=== PATIENT | male | born 1940 | race Caucasian/White ===

== ENCOUNTER → 2018-10-21 11:14 | Outpatient (CLI) | payer OTHER, SELFPAY ==
--- NOTE | 2018-10-21 | DI.CT.S_ITS ---
PROCEDURE: CT ABDOMEN PELVIS W CON INDICATIONS: Unspecified abdominal pain TECHNIQUE: After the administration of oral and intravenous contrast, 5 mm thick sections acquired from the diaphragms to the symphysis. 5 mm thick coronal and sagittal reformats were performed. For radiation dose reduction, the following was used: automated exposure control, adjustment of mA and/or kV according to patient size. COMPARISON: CT KUB 02/23/2010. FINDINGS: Image quality: Excellent. ABDOMEN: Lung bases: Lung bases are clear. Heart size is normal. Solid organs: Liver is normal in size and enhancement. Gallbladder is unremarkable. Biliary system is non-dilated. Pancreas enhances normally. Spleen is normal in size and enhancement. No adrenal nodules. Kidneys are normal in size and enhancement, without hydronephrosis. Punctate nonobstructing kidney stone in the superior pole of the right kidney, (4/44). Overall stone burden is decreased compared to 2010. Peritoneum and bowel: Stomach, small bowel, and colon loops are normal in caliber and wall thickness. A few colonic diverticuli. No free fluid or air. Nodes and vessels: No retroperitoneal or mesenteric adenopathy. Aorta and inferior vena cava are normal in caliber. Moderate atherosclerotic plaque. Miscellaneous: No ventral hernias. PELVIS: Genitourinary: Small left bladder diverticulum. No bladder calculus. Urinary bladder wall thickness appears normal. Mild prostatomegaly. A trace right hydrocele partially visualized. Miscellaneous: No inguinal hernias or adenopathy. Bones: No suspicious bony lesions. Moderate DDD. No vertebral body compression fractures. IMPRESSION: 1. No acute inflammatory process identified. 2. No hydronephrosis. Small right kidney nonobstructing kidney stone. 3. Bladder diverticulum and prostatomegaly. Dictated by: Johnnie Samano M.D. on 10/21/2018 at 14:15 Approved by: Johnnie Samano M.D. on 10/21/2018 at 14:23
[2018-10-21 12:52] LABS: Add Manual Diff / Slide Review NO; Basophils Absolute Auto 0 /uL (0-100); Basophils Percent Auto 0.5 % (0-2); Eosinophils Absolute Auto 100 /uL (0-450); Eosinophils Percent Auto 1.1 % (2-4); Hematocrit 41.2 % (41-53); Hemoglobin 14.2 g/dL (13.5-17.5); Lymphocytes Absolute Auto 1200 /uL (1100-4500); Lymphocytes Percent Auto 26.2 % (25-40); Mean Corpuscular HGB Conc 34.5 % (30-36); Mean Corpuscular Hemoglobin 31.3 PG (26-34); Mean Corpuscular Volume 90.9 fL (80-100); Monocytes Absolute Auto 600 /uL (0-900); Monocytes Percent Auto 13.6 % (3-14); Neutrophils Absolute Auto 2700 /uL (1500-7000); Neutrophils Percent Auto 58.6 % (50-75); Platelet Count 148 X10^3/uL (150-400); Red Blood Cell Count 4.53 X10^6/uL (4.5-5.9); Red Cell Distribution Width 13.7 % (11.6-14.8); White Blood Cell Count 4.6 X10^3/uL (4.5-11.0)
[2018-10-21 13:13] LABS: Alanine Aminotransferase 38 IU/L (21-72); Albumin 4.3 g/dL (3.5-5.0); Albumin Globulin Ratio 1.3 (1.0-2.8); Alkaline Phosphatase 59 U/L (38-126); Aspartate Aminotransferase 29 IU/L (17-59); BUN Creatinine Ratio 15.7 (6-22); Bilirubin Total 2.3 mg/dL (0.2-1.3); Blood Urea Nitrogen 11 mg/dL (9-20); Calcium 9.2 mg/dL (8.4-10.2); Carbon Dioxide 27 mmol/L (22-32); Chloride 100 mmol/L (98-107); Cholesterol 120 mg/dL (140-199); Estimated Glomerular Filt Rate > 60.0 mL/min (>60); Globulin 3.3 g/dL (1.7-4.1); Glucose 96 mg/dL (80-110); HDL Cholesterol 38 mg/dL (40-60); HEMOLYSIS < 15 (0-50); LDL Cholesterol Calculated 65 mg/dL (<100); Potassium 3.4 mmol/L (3.4-5.1); Sodium 139 mmol/L (137-145); Total Protein 7.6 g/dL (6.3-8.2); Triglycerides 85 mg/dL (35-150)
[2018-10-21 13:40] LABS: Prostate Specific Antigen 0.259 ng/mL (0.10-4.00)
== END ==
PROVIDERS: PCP Internal Medicine; Visit Provider Internal Medicine
DX: N40.0 Benign prostatic hyperplasia without lower urinary tract symptoms (principal); E78.2 Mixed hyperlipidemia
CPT/HCPCS: 74177; 80053; 80061; 84153; 85025; Q9967

== ENCOUNTER → 2019-01-11 09:41 | Outpatient (CLI) | payer OTHER, SELFPAY ==
--- NOTE | 2019-01-11 | DI.RAD.S_ITS ---
PROCEDURE: XR SHOULDER LT MIN 2V INDICATIONS: PAIN IN UNSPECIFIED SHOULDER TECHNIQUE: 3 views of the left shoulder were acquired. COMPARISON: None. FINDINGS: Bones: No fractures or dislocations. No suspicious bony lesions. Visualized ribs appear intact. Soft tissues: No suspicious soft tissue calcifications. IMPRESSION: Mild a.c. joint osteoarthritis, no trauma found. Dictated by: Bryan Sharma M.D. on 01/11/2019 at 10:50 Approved by: Bryan Sharma M.D. on 01/11/2019 at 10:50
== END ==
PROVIDERS: PCP Internal Medicine; Visit Provider Internal Medicine
DX: M25.512 Pain in left shoulder (principal); M19.012 Primary osteoarthritis, left shoulder
CPT/HCPCS: 73030

== ENCOUNTER → 2019-10-28 19:17 | Outpatient (ROUT) | payer MEDICARE, SELFPAY ==
[2019-10-28 19:51] LABS: Aspartate Aminotransferase 33 IU/L (17-59); BUN Creatinine Ratio 13.4 (6-22); Blood Urea Nitrogen 9 mg/dL (9-20); Calcium 9.5 mg/dL (8.4-10.2); Carbon Dioxide 30 mmol/L (22-32); Chloride 102 mmol/L (98-107); Cholesterol 105 mg/dL (140-199); Estimated Glomerular Filt Rate > 60.0 mL/min (>60); Glucose 108 mg/dL (80-110); HDL Cholesterol 40 mg/dL (40-60); HEMOLYSIS < 15 (0-50); LDL Cholesterol Calculated 48 mg/dL (<100); Potassium 3.4 mmol/L (3.4-5.1); Sodium 138 mmol/L (137-145); Triglycerides 84 mg/dL (35-150)
[2019-10-28 20:17] LABS: Prostate Specific Antigen 0.213 ng/mL (0.10-4.00)
== END ==
PROVIDERS: PCP Internal Medicine; Visit Provider Internal Medicine
DX: E78.2 Mixed hyperlipidemia (principal); I10 Essential (primary) hypertension; R73.01 Impaired fasting glucose
CPT/HCPCS: 80048; 80061; 83036; 84153; 84450

== ENCOUNTER → 2019-11-11 08:09 | Outpatient (CLI) | payer MEDICARE, SELFPAY ==
--- NOTE | 2019-11-11 | DI.RAD.S_ITS ---
PROCEDURE: XR KNEE RT 1TO2V INDICATIONS: acute pain of rt knee TECHNIQUE: 2 views of the knee were acquired. COMPARISON: None. FINDINGS: Bones: No fractures or dislocations. No suspicious bony lesions. Soft tissues: No joint effusion. No suspicious soft tissue calcifications. IMPRESSION: Mild narrowing of the medial compartment joint interspace indicating presence of osteoarthritis in this area. No effusion or loose body found. Dictated by: Bryan Sharma M.D. on 11/11/2019 at 9:42 Approved by: Bryan Sharma M.D. on 11/11/2019 at 9:42
== END ==
PROVIDERS: PCP Internal Medicine; Referring Provider Internal Medicine; Visit Provider Student in an Organized Health Care Education/Training Program
DX: M25.561 Pain in right knee (principal); M17.11 Unilateral primary osteoarthritis, right knee
CPT/HCPCS: 73560

== ENCOUNTER → 2019-11-18 17:22 | Outpatient (CLI) | payer MEDICARE, SELFPAY ==
--- NOTE | 2019-11-18 17:23 | DI.MRI.S_ITS ---
PROCEDURE: MR KNEE RT WO CON INDICATIONS: RIGHT KNEE PAIN TECHNIQUE: Noncontrast sagittal PD fast spin echo and T2 fast spin echo with fat saturation, sagittal 3-D FLASH with fat saturation; coronal T1 spin echo and PD fast spin echo with fat saturation, and axial PD fast spin echo with fat saturation through the knee. COMPARISON: None. FINDINGS: Image quality: Excellent. Menisci: Medial meniscus tear involving the body and posterior horn, with abnormal signal extending to the undersurface.. Lateral meniscus intact. Cruciate ligaments: Anterior cruciate ligament appears intact. Posterior cruciate ligament appears intact. Medial structures: The medial collateral ligament appears intact. Semimembranosus tendon appears intact. Visualized portions of the pes anserinus tendons appear normal. No abnormal bursal fluid. Lateral structures: The lateral collateral ligament intact. Biceps femoris tendon appears intact. Popliteus tendon grossly unremarkable. Iliotibial band appears intact. Anterior structures: Quadriceps tendon intact. Medial and lateral patellofemoral ligaments intact. Patellar tendon appears intact. There is extensive prepatellar and superficial infrapatellar subcutaneous edema and fluid suggestive of severe bursitis. Hoffa's fat pad unremarkable. Bones and cartilage: No focal marrow contusion or discrete low signal fracture line. Within the medial compartment, diffuse partial-thickness loss of the femoral and tibial articular cartilage. Within the lateral compartment, no focal cartilage defect. Within the patellofemoral compartment, mild diffuse surface fraying of the patellar and femoral trochlear cartilage with near full thickness loss of the cartilage overlying the medial patellar facet. Underlying subchondral cystic change and marrow edema. Joint space: No joint effusion. Trace Proctor's cyst. No specific evidence of intra-articular loose body. IMPRESSION: Severe prepatellar and superficial infrapatellar fluid and edema suggestive of bursitis. Please correlate clinically. There is also circumferential subcutaneous edema elsewhere. Medial meniscal tear involving the body and posterior horn. Trace Proctor's cyst Dictated by: Silas Martínez M.D. on 11/21/2019 at 10:50 Approved by: Silas Martínez M.D. on 11/21/2019 at 10:57
== END ==
PROVIDERS: PCP Internal Medicine; Referring Provider Internal Medicine; Visit Provider Internal Medicine
DX: M25.561 Pain in right knee (principal); S83.241A Other tear of medial meniscus, current injury, right knee, initial encounter
CPT/HCPCS: 73721

== ENCOUNTER → 2019-12-28 18:35 | Outpatient (ROUT) | payer MEDICARE, SELFPAY ==
[2019-12-28 19:32] LABS: C-Reactive Protein Quant < 0.5 mg/dL (<1.0)
[2019-12-28 19:36] LABS: Add Manual Diff / Slide Review NO; Basophils Absolute Auto 0 /uL (0-100); Basophils Percent Auto 0.7 % (0-2); Eosinophils Absolute Auto 100 /uL (0-450); Eosinophils Percent Auto 2.7 % (2-4); Hematocrit 42.7 % (41-53); Hemoglobin 14.2 g/dL (13.5-17.5); Lymphocytes Absolute Auto 1200 /uL (1100-4500); Lymphocytes Percent Auto 26.8 % (25-40); Mean Corpuscular HGB Conc 33.3 % (30-36); Mean Corpuscular Hemoglobin 30.8 PG (26-34); Mean Corpuscular Volume 92.6 fL (80-100); Monocytes Absolute Auto 500 /uL (0-900); Monocytes Percent Auto 11.6 % (3-14); Neutrophils Absolute Auto 2700 /uL (1500-7000); Neutrophils Percent Auto 58.2 % (50-75); Platelet Count 165 X10^3/uL (150-400); Red Blood Cell Count 4.61 X10^6/uL (4.5-5.9)
[2019-12-28 20:16] LABS: White Blood Cell Count 4.6 X10^3/uL (4.5-11.0)
[2019-12-28 20:25] LABS: Erythrocyte Sedimentation Rate 2 MM/HR (0-15)
== END ==
PROVIDERS: PCP Internal Medicine; Visit Provider Internal Medicine
DX: R51.9 Headache, unspecified (principal)
CPT/HCPCS: 85025; 85651; 86140

== ENCOUNTER → 2020-02-07 10:19 | Outpatient (CLI) | payer MEDICARE, SELFPAY ==
--- NOTE | 2020-02-07 | DI.RAD.S_ITS ---
PROCEDURE: XR CERVICAL SPINE 2V OR 3V INDICATIONS: NECK PAIN TECHNIQUE: 3 view(s) of the cervical spine were acquired. COMPARISON: [facility], CERVICAL SPINE 2 OR 3 VIEWS, 03/04/2017, 12:40. FINDINGS: Bones: No fracture. Multilevel degenerative endplate sclerosis and spurring. Diffuse facet arthropathy. Moderate to severe narrowing of the C5-C6 and C6-C7 disc spaces. Soft tissues: No prevertebral soft tissue swelling. IMPRESSION: Lower cervical spondylosis and diffuse facet arthropathy. Overall, no definite interval change since 03/04/17. Dictated by: Silas Martínez M.D. on 02/07/2020 at 11:55 Approved by: Silas Martínez M.D. on 02/07/2020 at 11:56
[2020-02-07 12:13] LABS: Add Manual Diff / Slide Review NO; Basophils Absolute Auto 0 /uL (0-100); Basophils Percent Auto 0.3 % (0-2); Eosinophils Absolute Auto 100 /uL (0-450); Eosinophils Percent Auto 0.9 % (2-4); Hematocrit 41.3 % (41-53); Hemoglobin 14.4 g/dL (13.5-17.5); Lymphocytes Absolute Auto 1000 /uL (1100-4500); Lymphocytes Percent Auto 16.7 % (25-40); Mean Corpuscular Hemoglobin 31.9 PG (26-34); Mean Corpuscular Volume 91.1 fL (80-100); Monocytes Absolute Auto 900 /uL (0-900); Monocytes Percent Auto 14.6 % (3-14); Neutrophils Absolute Auto 4200 /uL (1500-7000); Neutrophils Percent Auto 67.5 % (50-75); Platelet Count 163 X10^3/uL (150-400); Red Blood Cell Count 4.53 X10^6/uL (4.5-5.9); Red Cell Distribution Width 13.7 % (11.6-14.8); White Blood Cell Count 6.3 X10^3/uL (4.5-11.0)
[2020-02-07 12:28] LABS: Erythrocyte Sedimentation Rate 11 MM/HR (0-15)
[2020-02-07 12:33] LABS: C-Reactive Protein Quant 1.3 mg/dL (<1.0)
== END ==
PROVIDERS: PCP Internal Medicine; Referring Provider Internal Medicine; Visit Provider Internal Medicine
DX: M54.2 Cervicalgia (principal); M47.812 Spondylosis without myelopathy or radiculopathy, cervical region; M48.02 Spinal stenosis, cervical region
CPT/HCPCS: 36415; 72040; 85025; 85651; 86140

== ENCOUNTER → 2020-04-24 20:19 | Outpatient (ROUT) | payer OTHER, SELFPAY ==
[2020-04-24 20:43] LABS: Aspartate Aminotransferase 28 IU/L (17-59); BUN Creatinine Ratio 18.5 (6-22); Blood Urea Nitrogen 12 mg/dL (9-20); Calcium 9.6 mg/dL (8.4-10.2); Carbon Dioxide 28 mmol/L (22-32); Chloride 100 mmol/L (98-107); Cholesterol 119 mg/dL (140-199); Estimated Glomerular Filt Rate > 60.0 mL/min (>60); Glucose 95 mg/dL (80-110); HDL Cholesterol 43 mg/dL (40-60); HEMOLYSIS < 15 (0-50); LDL Cholesterol Calculated 60 mg/dL (<100); Potassium 3.9 mmol/L (3.4-5.1); Sodium 136 mmol/L (137-145); Triglycerides 82 mg/dL (35-150)
== END ==
PROVIDERS: PCP Internal Medicine; Visit Provider Internal Medicine
DX: I10 Essential (primary) hypertension (principal); E78.2 Mixed hyperlipidemia
CPT/HCPCS: 80048; 80061; 84450

== ENCOUNTER → 2020-10-12 11:02 | Outpatient (CLI) | payer OTHER, SELFPAY ==
--- NOTE | 2020-10-12 | DI.RAD.S_ITS ---
PROCEDURE: XR WRIST RT MIN 3V INDICATIONS: RIGHT WRIST PAIN TECHNIQUE: 4 views of the wrist were acquired. COMPARISON: None. FINDINGS: Bones: No fractures or dislocations. No suspicious bony lesions. Mild radiocarpal, ulnar carpal, triscaphe and 1st CMC joint space narrowing. Scaphoid view: Intact scaphoid. Soft tissues: No suspicious soft tissue calcifications. IMPRESSION: Minimal joint degeneration. Dictated by: Trung Bartholomew RR Interpreted: Bryan Sharma MD on 10/12/2020 at 11:39 Transcribed by: SURESH on 10/12/2020 at 11:40 Approved by: Bryan Sharma M.D. on 10/12/2020 at 15:10
== END ==
PROVIDERS: PCP Internal Medicine; Referring Provider Internal Medicine; Visit Provider Internal Medicine
DX: M25.531 Pain in right wrist (principal)
CPT/HCPCS: 73110

== ENCOUNTER → 2020-11-21 10:02 | Outpatient (CLI) | payer OTHER, SELFPAY ==
--- NOTE | 2020-11-21 | DI.RAD.S_ITS ---
PROCEDURE: XR DEXA AXIAL SKELETON INDICATIONS: OSTEOPENIA COMPARISON: None. FINDINGS: This blank DEXA report has been sent in error by the PACS system. The correct and complete report will be forthcoming in 1-2 days. Thank you for your patience and understanding. Dictated by: Mala Gonzalez MD, PhD on 11/21/2020 at 10:49 Approved by: Mala Gonzalez MD, PhD on 11/21/2020 at 10:49
== END ==
PROVIDERS: PCP Internal Medicine; Referring Provider Internal Medicine; Visit Provider Internal Medicine
DX: M85.89 Other specified disorders of bone density and structure, multiple sites (principal); Z87.891 Personal history of nicotine dependence; Z82.62 Family history of osteoporosis
CPT/HCPCS: 77080

== ENCOUNTER 2021-02-19 14:44 | Emergency (ER) | payer OTHER, SELFPAY ==
[2021-02-19 14:46] VITALS: BP 185/87; PULSE 80; RESP 18; TEMP 36.7; O2SAT 100; BMI 26.4
--- NOTE | 2021-02-19 14:57 | DI.RAD.S_ITS ---
PROCEDURE: XR SHOULDER RT MIN 2V INDICATIONS: fall/injury TECHNIQUE: 3 views of the shoulder were acquired. COMPARISON: [facility], , CHEST 2 VIEW, 06/06/2015, 11:07. FINDINGS: Bones: No fractures. Superior subluxation of the distal clavicle at the AC joint. No suspicious bony lesions. Visualized ribs appear intact. Soft tissues: No suspicious soft tissue calcifications. IMPRESSION: 1. Superior subluxation of the distal clavicle at the AC joint consistent with AC separation. 2. No fracture. Dictated by: Dk Arevalo M.D. on 02/19/2021 at 15:19 Approved by: Dk Arevalo M.D. on 02/19/2021 at 15:24
--- NOTE | 2021-02-19 18:34 | ED.FALL ---
HPI - Fall General Chief Complaint: Fall Stated Complaint: Slip & Fall Rt. Shoulder pain Time Seen by Provider: 02/19/21 17:57 Source: EMS Mode of arrival: Ambulatory History of Present Illness HPI Narrative: 80-year-old male who is here for evaluation of a right shoulder injury. He states that he fell earlier today landing on his right side specifically landing on his right shoulder pain reports no other injuries from the event. Has had discomfort in his right shoulder since then. Did not hit his head. No neck pain. Not on anticoagulation. Related Data Home Medications Medication Instructions Recorded Confirmed ASPIRIN CHEW - 81 mg PO Q DAY #0 02/23/10 04/02/20 (ASPIRIN) [OMEPRAZOLE] 20 mg PO HS #0 02/23/10 04/02/20 atorvastatin 40 mg tablet (Lipitor) 40 mg PO QDAY #0 02/23/10 04/02/20 amlodipine 5 mg tablet (Norvasc) 5 mg PO QDAY #0 12/23/16 04/02/20 chlorthalidone 25 mg tablet 12.5 mg PO QDAY #0 12/23/16 04/02/20 losartan 50 mg tablet 50 mg PO QDAY #0 12/23/16 04/02/20 multivitamin (Multiple Vitamins) 1 tab PO QDAY #0 12/23/16 04/02/20 omega 0-oxy-usv-fish oil 1,000 mg 1,000 mg PO QDAY #0 12/23/16 04/02/20 (120 mg-180 mg) capsule (Fish Oil) ResMed AirSense 10 CPAP #1 ea 03/25/18 04/02/20 loratadine 10 mg disintegrating 10 mg PO DAILY 03/30/20 03/30/20 tablet tacrolimus 0.1 % topical ointment 1 applic TOPICAL BID 03/30/20 03/30/20 (Protopic) tolterodine 2 mg capsule,extended 2 mg PO DAILY 03/30/20 03/30/20 release 24 hr Previous Rx's Medication Instructions Recorded finasteride 5 mg tablet 5 mg PO QDAY #90 tab 04/02/20 alfuzosin 10 mg tablet,extended 10 mg PO QDAY #90 tab 11/26/20 release 24 hr Allergies Allergy/AdvReac Type Severity Reaction Status Date / Time amoxicillin [From Augmentin] Allergy Verified 02/19/21 14:55 clavulanic acid Allergy Verified 02/19/21 14:55 [From Augmentin] Review of Systems Constitutional Constitutional: Denies headache(s) ENT Ears, Nose, Mouth, and Throat: Denies headache(s) Cardiovascular Cardiovascular: Reports system reviewed and no additional complaints, except as documented Respiratory Respiratory: Reports system reviewed and no additional complaints, except as documented Musculoskeletal Musculoskeletal: Reports system reviewed and no additional complaints, except as documented and Reports as per HPI Integumentary/Breasts Skin/Breast: Reports system reviewed and no additional complaints, except as documented Neurologic Neurologic: Reports system reviewed and no additional complaints, except as documented and Denies headache(s) Hematologic/Lymphatic On Anticoagulants: No Allergic/Immunologic Allergic/Immunologic: Reports system reviewed and no additional complaints, except as documented Patient History Medical History (Updated 02/19/21 @ 18:35 by Osmany Calle DO) Arthritis BPH (benign prostatic hyperplasia) BPH w urinary obs/LUTS Family history of prostate cancer in father GERD (gastroesophageal reflux disease) H/O nephrolithotomy with removal of calculi History of kidney stones Hyperlipidemia Hypertension Kidney stone Obesity Obstructive sleep apnea of adult Osteoporosis Plantar fasciitis Primary insomnia Snoring Vasomotor rhinitis Surgical History History of appendectomy History of sinus surgery Family History Father Cancer Brother Coronary artery disease Social History marital status: details: david Davison, lives in [facility] number of children: 2 household members: spouse lives independently: Yes caregiver/support person: No housing: house pets and animals: No 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 [employer] Smoking Status: Former smoker Tobacco: How many years used: 25 alcohol intake: current substance use type: does not use caffeine: Yes Smoking Status: Former smoker alcohol intake frequency: holidays/special occasions only Substance Use Type: does not use Exam Initial Vital Signs Initial Vital Signs: Vital Signs Temperature 98.1 F 02/19/21 14:46 Pulse Rate 80 02/19/21 14:46 Respiratory Rate 18 02/19/21 14:46 Blood Pressure 185/87 H 02/19/21 14:46 Pulse Oximetry 100 02/19/21 14:46 Const General: cooperative, comfortable and well developed Limitations: mental status not altered HENMT Head: normal to inspection and normocephalic Resp Effort & Inspection: normal respiratory effort Auscultation: clear to auscultation bilaterally Cardio Rate: regular rate Skin General: no rashes or lesions noted Neuro General: patient alert, patient awake and patient oriented x3 Extrem General: capillary refill normal Other: Patient with tenderness to palpation throughout the right shoulder however specifically over the AC joint. Also has some tenderness over the scapula on the right. Psych Appearance: grossly normal and well kempt Course Orders Ordered: ED Orders 02/19/21 14:57 XR shoulder RT min 2V Stat Vital Signs Vital signs: Vital Signs - 8 hr 02/19/21 18:44 Pulse Rate 84 Respiratory Rate 18 Blood Pressure 186/100 H Pulse Oximetry 96 MDM - Fall Imaging Data Extremity x-ray #1: Radiologist's Impression: [address] [address] XRay Report Signed Patient: Osmany Greenfield MR#: [id number] : 1940 Acct:[id number] Age/Sex: 80 / M Date of Service: 02/19/21 Loc: ED Accession Number: [id number] ?? Procedure: XR shoulder RT min 2V Ordering Provider: Lizbeth Mendez D.O. PROCEDURE:? XR SHOULDER RT MIN 2V ? INDICATIONS:? fall/injury ? TECHNIQUE:? 3 views of the shoulder were acquired.? ? COMPARISON:? [facility], , CHEST 2 VIEW, 06/06/2015, 11:07. ? FINDINGS:? ? Bones:? No fractures.? Superior subluxation of the distal clavicle at the AC joint.? No suspicious bony lesions.? Visualized ribs appear intact.? ? Soft tissues:? No suspicious soft tissue calcifications.? ? IMPRESSION:? ? 1. Superior subluxation of the distal clavicle at the AC joint consistent with AC separation. 2. No fracture.? ? ? Dictated by: Dk Arevalo M.D. on 02/19/2021 at 15:19 ? ? Approved by: Dk Arevalo M.D. on 02/19/2021 at 15:24? [facility] Narrative Medical decision making narrative: The x-ray does not show any signs of fractures nor dislocations. He does have findings that are consistent with an AC separation in this also fits with his presentation today. He is neurovascularly intact. I feel that we can hold on further workup for now to include any further radiologic studies. He reports no other injuries from the event. He was given return precautions and care instructions. He expressed understanding and agreement. Discharge Plan Departure Patient Disposition: Home Clinical Impression: shoulder Instructions: DI for AC Joint Separation Activity Restrictions/Additional Instructions: You do have what is called a shoulder separation. We do recommend that you try to use your right arm as much as possible limiting yourself by the discomfort that you have. You can take Tylenol or ibuprofen for discomfort. Contact your primary doctor for a follow-up. Return to the emergency department for any new or worsening symptoms. Prescriptions: No Action ASPIRIN CHEW - (ASPIRIN) 81 mg PO Q DAY Qty: 0 0RF atorvastatin [Lipitor] 40 MG tablet 40 mg PO QDAY Qty: 0 0RF [OMEPRAZOLE] 20 mg PO HS Qty: 0 0RF chlorthalidone 25 MG tablet 12.5 mg PO QDAY Qty: 0 0RF amlodipine [Norvasc] 5 MG tablet 5 mg PO QDAY Qty: 0 0RF losartan 50 MG tablet 50 mg PO QDAY Qty: 0 0RF multivitamin [Multiple Vitamins] 1 EACH tablet 1 tab PO QDAY Qty: 0 0RF omega 4-qhe-nxr-fish oil [Fish Oil] 1,000 MG capsule 1,000 mg PO QDAY Qty: 0 0RF alfuzosin 10 mg tablet extended release 24 hr 10 mg PO QDAY Qty: 90 3RF (DME) ResMed AirSense 10 CPAP Qty: 1 0RF Dose Instruction: As directed Label Comments: Pressure: 6-14 cmH2O DME: [facility] Rx Instructions: As directed tolterodine 2 mg capsule,extended release 24hr 2 mg PO DAILY 0RF tacrolimus [Protopic] 0.1 % ointment 1 applic topical BID 0RF loratadine 10 mg tablet,disintegrating 10 mg PO DAILY 0RF finasteride 5 mg tablet 5 mg PO QDAY Qty: 90 3RF Referrals: Francisco Ohara MD [Primary Care Provider] -
[2021-02-19 18:44] VITALS: BP 186/100; PULSE 84; RESP 18; O2SAT 96
== END 2021-02-19 18:45 | disposition home or self-care (01) ==
PROVIDERS: Emergency Provider Emergency Medicine; PCP Internal Medicine
DX: S43.101A Unspecified dislocation of right acromioclavicular joint, initial encounter (principal); Z87.891 Personal history of nicotine dependence; W19.XXXA Unspecified fall, initial encounter
CPT/HCPCS: 73030; 99281; 99283

== ENCOUNTER → 2021-04-04 13:42 | Outpatient (CLI) | payer MEDICARE, SELFPAY ==
[2021-04-04 15:10] LABS: Prostate Specific Antigen 0.367 ng/mL (0.10-4.00)
== END ==
PROVIDERS: PCP Internal Medicine; Referring Provider Specialist; Visit Provider Specialist
DX: R97.20 Elevated prostate specific antigen [PSA] (principal)
CPT/HCPCS: 36415; 84153

== ENCOUNTER → 2021-05-14 11:38 | Outpatient (CLI) | payer OTHER, SELFPAY ==
[2021-05-14 12:28] LABS: COVID19 -Nasal RAPID Negative (Negative)
== END ==
PROVIDERS: PCP Internal Medicine; Visit Provider Specialist
DX: Z20.822 Contact with and (suspected) exposure to COVID-19 (principal)
CPT/HCPCS: 87635; C9803

== ENCOUNTER 2021-05-17 06:32 | Day surgery (SDC) | payer OTHER, SELFPAY ==
[2021-05-14 14:48] VITALS: BMI 27.1
--- NOTE | 2021-05-17 | PATH_ITS ---
[facility] Accession Number: [id number] . 01 Material submitted: . scrotum - SCROTAL CORINE . 01 Diagnosis: Specimen Scrotal Corine: Circumscribed eosinophilic, amorphous hyalinized lesion with associated dystrophic calcification. No malignancy. MRV 05/23/2021 1602 Local . 01 Comment: The findings are nonspecific and are compatible with scrotal corine/calculus/calcinosis. . 01 Electronically signed: . Sachi Henson MD, Pathologist NPI- [id number] . 01 Gross description: . SCROTAL CORINE: Received in formalin is 1 piece of SKIN PAPULE measuring 0.5 x 0.4 x 0.4 cm which is inked, bisected and submitted in toto in 1 cassette. /[facility] 05/20/2021 1650 Local . 01 Pathologist provided ICD-10: N43.3, N49.2 . 01 CPT . 150897 Specimen Comment: A courtesy copy of this report has been sent to [phone] Performed at: 01 [facility] [address] [place] [address] [id number] MD Vic Andrade MD Phone: [phone]
[2021-05-17 06:50] VITALS: BP 175/86; PULSE 65; RESP 18; TEMP 36.5; O2SAT 97
[2021-05-17 06:59] VITALS: BMI 27.1
[2021-05-17] MEDS: LACTATED RINGERS 500 ML 25 ML IV (07:09)
--- NOTE | 2021-05-17 07:32 | P.OP.PRE_ITS ---
Pre-operative Note COVID-19 Criteria for continued procedure: Expected advancement of disease process, Possibility delay results in more complex future surgery or treatment, Continuing or worsening of significant or severe pain, Deterioration of the patient's condition or overall health and Non-surgical alternatives not avai lable or appropriate per current SOC Interval Note History & Physical reviewed/Exam performed by Physician: Yes Changes to H&P: No
--- NOTE | 2021-05-17 07:50 | PM.HP.1 ---
History of Present Illness History of Present Illness Date Patient Seen: 05/17/21 Time Patient Seen: 07:51 Chief complaint: SDC Narrative: 80-year-old male with previous history of BPH/LUTS, and positive family history of prostate cancer presents today for stent schedule right hydrocelectomy for enlarging increasingly symptomatic right scrotal fluid collection. Patient History Medical History Arthritis BPH (benign prostatic hyperplasia) BPH w urinary obs/LUTS Family history of prostate cancer in father GERD (gastroesophageal reflux disease) H/O nephrolithotomy with removal of calculi History of kidney stones Hyperlipidemia Hypertension Kidney stone Obesity Obstructive sleep apnea of adult Osteoporosis Plantar fasciitis Primary insomnia Right hydrocele Snoring Vasomotor rhinitis Surgical History History of appendectomy History of sinus surgery Family & Social History Family History Father Cancer Brother Coronary artery disease Social History: household members spouse lives independently Yes caregiver/support person No other 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 [employer] Tobacco & Substance use: Smoking Status Former smoker alcohol intake current alcohol intake frequency a few times a week Substance Use Type does not use Meds Home Medications and Allergies Home Medications Medication Instructions Recorded Confirmed Type aspirin 81 mg tablet,delayed 81 mg PO DAILY #0 02/23/10 05/17/21 History release (Aspirin Low Dose) atorvastatin 40 mg tablet (Lipitor) 40 mg PO QDAY #0 02/23/10 05/17/21 History omeprazole 20 mg capsule,delayed 20 mg PO BEDTIME #0 02/23/10 05/17/21 History release amlodipine 5 mg tablet (Norvasc) 5 mg PO QDAY #0 12/23/16 05/17/21 History chlorthalidone 25 mg tablet 12.5 mg PO QDAY #0 12/23/16 05/17/21 History losartan 50 mg tablet 50 mg PO QDAY #0 12/23/16 05/17/21 History multivitamin (Multiple Vitamins) 1 tab PO QDAY #0 12/23/16 05/17/21 History omega 3-bvs-ngb-fish oil 1,000 mg 1,000 mg PO QDAY #0 12/23/16 05/17/21 History (120 mg-180 mg) capsule (Fish Oil) ResMed AirSense 10 CPAP #1 ea 03/25/18 04/17/21 History loratadine 10 mg disintegrating 10 mg PO DAILY 03/30/20 05/17/21 History tablet tolterodine 2 mg capsule,extended 2 mg PO DAILY 03/30/20 05/14/21 History release 24 hr alfuzosin 10 mg tablet,extended 10 mg PO QDAY #90 tab 11/26/20 05/17/21 Rx release 24 hr finasteride 5 mg tablet 5 mg PO QDAY #90 tab 04/17/21 05/17/21 Rx Allergies Allergy/AdvReac Type Severity Reaction Status Date / Time amoxicillin [From Augmentin] Allergy Verified 05/17/21 06:52 clavulanic acid Allergy Verified 05/17/21 06:52 [From Augmentin] Review of Systems Review of Systems ROS: Yes All systems reviewed with the patient and are negative except as otherwise documented Exam Vital Signs (past 8 hours): - 05/17/21 06:50 Temperature 97.7 F Pulse Rate 65 Respiratory Rate 18 Blood Pressure 175/86 H Pulse Oximetry 97 Oxygen Delivery Method Room Air Narrative Exam Narrative: He is a well-developed moderately over nourished elderly male in no acute distress. Head/neck-sclera clear and pupils are round and equal. No visible evidence of adenopathy or JVD. Chest equal and unlabored expansion bilaterally. Heart-normal sinus rhythm. Genitalia-normal adult circumcised male phallus. Meatus is orthotopic and of normal caliber. 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 No rash. There is a moderately large, ballotable right scrotal content fluid collection extending superiorly to the external ring. Left testis is palpably normal but displaced laterally and superiorly. Assessment & Plan Assessment and plan (1) Right hydrocele: Status: Acute (2) BPH w urinary obs/LUTS: Status: Acute (3) Family history of prostate cancer in father: Status: Acute Plan 1. Previous discussion informed consent has been obtained for RIGHT HYDROCELECTOMY. Time Spent With Patient Critical Care time: I spent a total of [] minutes of critical care time on this patient's care today; this time is exclusive of procedural time.
[2021-05-17] MEDS: CIPROFLOXACIN 400 MG/200 ML PIGGYBACK 200 MG IV (08:00)
--- NOTE | 2021-05-17 08:21 | SUR.OPER ---
Supine on padded OR bed, head on pillow, arms secured on padded arm boards at <90 degrees abduction, legs uncrossed, safety belt at thigh, tape over blanket over lower legs. Gel pad placed under bilateral heels.
[2021-05-17] MEDS: BUPIVACAINE 0.25% (PF) 30 ML, EPINEPHrine 0.15 MG INJ (08:29)
[2021-05-17] MEDS: BUPIVACAINE LIPOSOME 266 MG/20 ML VIAL INJ (08:29)
[2021-05-17] MEDS: NEOMYCIN/POLYMYXIN/BACITRA UD OINT 2 EACH TOP (08:30)
[2021-05-17 09:20] VITALS: BP 155/75; PULSE 66; RESP 16; TEMP 35.8; O2SAT 95
[2021-05-17 09:25] VITALS: BP 155/77; PULSE 64; RESP 16; O2SAT 95
[2021-05-17 09:30] VITALS: BP 154/77; PULSE 65; RESP 16; O2SAT 95
--- NOTE | 2021-05-17 09:31 | P.OP_ITS ---
Operative Date/Time/Diagnoses Date of procedure: 05/17/21 Time of procedure: 09:31 Pre-op diagnosis: Right hydrocele Post-op diagnosis: same Procedure & Clinicians Procedure: 1. Right hydrocelectomy. Same procedure as scheduled: Yes Indications: Symptomatic right hydrocele. Surgeon: Marcos Howell Click Yes if Unassisted: Yes Anesthesia Type: General Operative Notes Findings: The patient was positioned supine and administered general anesthesia. The lower abdomen, genitalia, and groin were then prepped and draped in sterile fashion. A solution of 0.25% Marcaine with epinephrine was then injected into the midline scrotal skin and subcutaneous dartos fascia. A midline incision was made with the needlepoint cautery pen through the skin and subcutaneous dartos fascia to the level of the tunica vaginalis on the right. The appropriate plane was then developed and using blunt dissection the fluid filled tunica vaginalis was delivered from the right hemiscrotum. The tunic vaginalis was then divided with the cautery pen in the midline and the slightly turbid, straw-colored fluid was drained. A 5 mm scrotal eulalio was removed from the space. Using 2-0 Monocryl suture the leaflets of the hydrocele sac were then reflected posteriorly and a comic book artist repair was performed using a horizontal mattress technique in usual fashion. The testis was then repositioned in the right hemiscrotum and was secured inferiorly with a 2-0 Monocryl. A 10 Palestinian fenestrated Jorge Alberto drain was then passed from inside to out through the inferior lateral right scrotal wall. Drain length was trimmed appropriately and positioned within right hemiscrotal space. The drain was secured to the skin with 2-0 silk in usual fashion. Next, the midline dartos fascia was closed using a running vertical mattress of 2-0 Monocryl. The skin was then reapproximated with 4-0 Monocryl utilizing a running horizontal mattress technique. The skin surface was cleaned and dried. Antibiotic ointment was applied to the incision line. A segment of Telfa gauze was then trimmed appropriately and position over the incision. Over this, dry sterile fluffs were applied to the scrotum and the patient was then fitted with an athletic supporter. Patient was then awakened, transferred to [facility], and transported recovery in stable condition. Closure Type: primary Specimen(s): other (Scrotal eulalio for gross only.) Applied: other (10 Palestinian fenestrated Jorge Alberto drain.) Estimated Blood Loss (mL): 1 Blood products transfused: none Procedure in detail: See above under findings. Complications: none Post-operative Condition: stable Disposition: PACU Plan for aftercare: Discharge home.
[2021-05-17 09:45] VITALS: BP 145/77; PULSE 66; RESP 18; TEMP 36.1; O2SAT 98
== END 2021-05-17 10:26 | disposition home or self-care (01) ==
PROVIDERS: PCP Internal Medicine; Referring Provider Specialist; Visit Provider Specialist
PROC: (CPT 55040; principal; 2021-05-17 07:45)
DX: N43.3 Hydrocele, unspecified (principal); N40.1 Benign prostatic hyperplasia with lower urinary tract symptoms; N13.8 Other obstructive and reflux uropathy; Z80.42 Family history of malignant neoplasm of prostate; G47.33 Obstructive sleep apnea (adult) (pediatric); I10 Essential (primary) hypertension
CPT/HCPCS: 55040; 82962; 93005; C9290; J0171; J0744; J2250; J2704; J3010

== ENCOUNTER → 2021-11-25 11:39 | Outpatient (CLI) | payer MEDICARE, SELFPAY ==
[2021-11-25 12:59] LABS: Hematocrit 42.2 % (41-53); Hemoglobin 14.3 g/dL (13.5-17.5); Mean Corpuscular Hemoglobin 30.9 PG (26-34); Mean Corpuscular Volume 91.1 fL (80-100); Platelet Count 165 X10^3/uL (150-400); Red Blood Cell Count 4.63 X10^6/uL (4.5-5.9); Red Cell Distribution Width 13.8 % (11.6-14.8); White Blood Cell Count 5.2 X10^3/uL (4.5-11.0)
[2021-11-25 13:22] LABS: Alanine Aminotransferase 27 IU/L (<50); Albumin 4.2 g/dL (3.5-5.0); Albumin Globulin Ratio 1.3 (1.0-2.8); Alkaline Phosphatase 57 U/L (38-126); Aspartate Aminotransferase 33 IU/L (17-59); BUN Creatinine Ratio 15.9 (6-22); Bilirubin Total 1.4 mg/dL (0.2-1.3); Blood Urea Nitrogen 11 mg/dL (9-20); Calcium 8.9 mg/dL (8.4-10.2); Carbon Dioxide 26 mmol/L (22-32); Chloride 103 mmol/L (98-107); Cholesterol 116 mg/dL (140-199); Estimated Glomerular Filt Rate > 60 mL/min (>60); Globulin 3.3 g/dL (1.7-4.1); Glucose 113 mg/dL (80-110); HDL Cholesterol 36 mg/dL (40-60); HEMOLYSIS < 15 (0-50); LDL Cholesterol Calculated 64 mg/dL (<100); Potassium 3.3 mmol/L (3.4-5.1); Sodium 138 mmol/L (137-145); Total Protein 7.5 g/dL (6.3-8.2); Triglycerides 79 mg/dL (35-150)
[2021-11-25 20:03] LABS: TSH w/ Reflex to FT4 1.76 uIU/mL (0.47-4.68)
== END ==
PROVIDERS: PCP Internal Medicine; Referring Provider Internal Medicine; Visit Provider Internal Medicine
DX: E78.2 Mixed hyperlipidemia (principal); I10 Essential (primary) hypertension
CPT/HCPCS: 36415; 80053; 80061; 84443; 85027

== ENCOUNTER → 2022-07-25 10:30 | Outpatient (CLI) | payer MEDICARE, SELFPAY ==
[2022-07-25 12:48] LABS: Prostate Specific Antigen 0.286 ng/mL (0.10-4.00)
== END ==
PROVIDERS: PCP Internal Medicine; Referring Provider Specialist; Visit Provider Specialist
DX: N40.1 Benign prostatic hyperplasia with lower urinary tract symptoms (principal); N13.8 Other obstructive and reflux uropathy; Z80.42 Family history of malignant neoplasm of prostate
CPT/HCPCS: 36415; 84153

== ENCOUNTER → 2022-07-30 11:31 | Outpatient (CLI) | payer MEDICARE, SELFPAY ==
--- NOTE | 2022-07-30 11:32 | DI.RAD.S_ITS ---
PROCEDURE: XR FOOT RT MIN 3V INDICATIONS: right foot pain TECHNIQUE: 3 views of the foot were acquired. COMPARISON: [facility], , FOOT 3V RIGHT, 04/26/2013, 11:43. FINDINGS: Bones: No fractures or dislocations. No suspicious bony lesions. Fxea-og-wacccfro osteoarthritic changes are present in ankle and foot. Soft tissues: No tibiotalar joint effusion. There is a ossicle in the distal Achilles tendon at the calcaneal insertion, unchanged. No is made of dorsal soft tissue swelling. IMPRESSION: 1. Pxde-hj-nryxszca osteoarthritis. 2. Dorsal soft tissue swelling. Dictated by: Dk Arevalo M.D. on 07/31/2022 at 9:02 Approved by: Dk Arevalo M.D. on 07/31/2022 at 9:04
== END ==
PROVIDERS: PCP Internal Medicine; Referring Provider Internal Medicine; Visit Provider Internal Medicine
DX: M19.071 Primary osteoarthritis, right ankle and foot (principal); M79.671 Pain in right foot; M79.89 Other specified soft tissue disorders
CPT/HCPCS: 73630

== ENCOUNTER → 2022-12-01 12:13 | Outpatient (CLI) | payer MEDICARE, SELFPAY ==
[2022-12-01 13:22] LABS: Aspartate Aminotransferase 29 IU/L (17-59); BUN Creatinine Ratio 17.4 (6-22); Blood Urea Nitrogen 12 mg/dL (9-20); Calcium 9.5 mg/dL (8.4-10.2); Carbon Dioxide 27 mmol/L (22-32); Chloride 100 mmol/L (98-107); Cholesterol 121 mg/dL (140-199); Estimated Glomerular Filt Rate > 60 mL/min (>60); Glucose 110 mg/dL (80-110); HDL Cholesterol 36 mg/dL (40-60); HEMOLYSIS < 15 (0-50); LDL Cholesterol Calculated 64 mg/dL (<100); Potassium 3.3 mmol/L (3.4-5.1); Sodium 136 mmol/L (137-145); Triglycerides 107 mg/dL (35-150)
[2022-12-01 13:52] LABS: Prostate Specific Antigen 0.287 ng/mL (0.10-4.00)
== END ==
PROVIDERS: PCP Internal Medicine; Referring Provider Internal Medicine; Visit Provider Internal Medicine
DX: E78.2 Mixed hyperlipidemia (principal); N40.1 Benign prostatic hyperplasia with lower urinary tract symptoms; I10 Essential (primary) hypertension; N13.8 Other obstructive and reflux uropathy
CPT/HCPCS: 36415; 80048; 80061; 84153; 84450

== ENCOUNTER → 2023-06-03 12:09 | Outpatient (CLI) | payer MEDICARE, SELFPAY ==
[2023-06-03 12:55] LABS: Hematocrit 40.1 % (41-53); Hemoglobin 13.8 g/dL (13.5-17.5); Mean Corpuscular HGB Conc 34.4 % (30-36); Mean Corpuscular Hemoglobin 31.6 PG (26-34); Mean Corpuscular Volume 91.8 fL (80-100); Platelet Count 145 X10^3/uL (150-400); Red Blood Cell Count 4.37 X10^6/uL (4.5-5.9); Red Cell Distribution Width 14.1 % (11.6-14.8); White Blood Cell Count 5.2 X10^3/uL (4.5-11.0)
[2023-06-03 13:32] LABS: BUN Creatinine Ratio 13.7 (6-22); Blood Urea Nitrogen 10 mg/dL (9-20); Calcium 9.3 mg/dL (8.4-10.2); Carbon Dioxide 28 mmol/L (22-32); Chloride 105 mmol/L (98-107); Estimated Glomerular Filt Rate > 60 mL/min (>60); Glucose 107 mg/dL (80-110); HEMOLYSIS < 15 (0-50); Potassium 3.8 mmol/L (3.4-5.1); Sodium 140 mmol/L (137-145)
== END ==
LOC: LAB 12:10
PROVIDERS: PCP Internal Medicine; Referring Provider Internal Medicine; Visit Provider Internal Medicine
DX: I10 Essential (primary) hypertension (principal)
CPT/HCPCS: 36415; 80048; 85027

== ENCOUNTER → 2023-07-23 10:51 | Outpatient (CLI) | payer MEDICARE, SELFPAY ==
[2023-07-23 13:31] LABS: Prostate Specific Antigen 0.238 ng/mL (0.10-4.00)
== END ==
PROVIDERS: PCP Internal Medicine; Referring Provider Specialist; Visit Provider Specialist
DX: R97.20 Elevated prostate specific antigen [PSA] (principal)
CPT/HCPCS: 36415; 84153

== ENCOUNTER → 2023-12-14 11:00 | Outpatient (CLI) | payer MEDICARE, SELFPAY ==
[2023-12-14 12:23] LABS: HEMOLYSIS < 15 (0-50)
[2023-12-14 12:24] LABS: Aspartate Aminotransferase 33 IU/L (17-59); BUN Creatinine Ratio 13.6 (6-22); Blood Urea Nitrogen 11 mg/dL (9-20); Calcium 9.7 mg/dL (8.4-10.2); Carbon Dioxide 27 mmol/L (22-32); Chloride 103 mmol/L (98-107); Cholesterol 124 mg/dL (140-199); Estimated Glomerular Filt Rate > 60 mL/min (>60); Glucose 116 mg/dL (80-110); HDL Cholesterol 40 mg/dL (40-60); LDL Cholesterol Calculated 63 mg/dL (<100); Sodium 139 mmol/L (137-145); Triglycerides 104 mg/dL (35-150)
[2023-12-14 12:30] LABS: Potassium 4.2 mmol/L (3.4-5.1)
[2023-12-14 12:48] LABS: Prostate Specific Antigen 0.259 ng/mL (0.10-4.00)
== END ==
LOC: LAB 11:01
PROVIDERS: PCP Internal Medicine; Referring Provider Internal Medicine; Visit Provider Internal Medicine
DX: E78.2 Mixed hyperlipidemia (principal); N40.1 Benign prostatic hyperplasia with lower urinary tract symptoms; I10 Essential (primary) hypertension; N13.8 Other obstructive and reflux uropathy
CPT/HCPCS: 36415; 80048; 80061; 84153; 84450

== ENCOUNTER → 2024-08-02 11:41 | Outpatient (CLI) | payer MEDICARE, SELFPAY ==
[2024-08-02 13:13] LABS: Prostate Specific Antigen 0.338 ng/mL (0.10-4.00)
== END ==
PROVIDERS: PCP Internal Medicine; Referring Provider Urology; Visit Provider Urology
DX: N40.1 Benign prostatic hyperplasia with lower urinary tract symptoms (principal); N13.8 Other obstructive and reflux uropathy
CPT/HCPCS: 36415; 84153

== ENCOUNTER → 2024-12-15 10:47 | Outpatient (CLI) | payer MEDICARE, SELFPAY ==
[2024-12-15 12:03] LABS: Hematocrit 43.5 % (41-53); Hemoglobin 15.0 g/dL (13.5-17.5); Mean Corpuscular HGB Conc 34.6 % (30-36); Mean Corpuscular Hemoglobin 31.3 PG (26-34); Mean Corpuscular Volume 90.4 fL (80-100); Platelet Count 167 X10^3/uL (150-400)
[2024-12-15 12:17] LABS: Hemoglobin A1C% w Est Avg Glu 6.0 % (4.0-6.0)
[2024-12-15 12:24] LABS: Blood Urea Nitrogen 13 mg/dL (9-20); Calcium 9.9 mg/dL (8.4-10.2); Carbon Dioxide 25 mmol/L (22-32); Chloride 101 mmol/L (98-107); Cholesterol 112 mg/dL (140-199); Estimated Glomerular Filt Rate > 60 mL/min (>60); Glucose 152 mg/dL (70-99); HDL Cholesterol 41 mg/dL (40-60); HEMOLYSIS < 15 (0-50); Potassium 3.7 mmol/L (3.4-5.1); Sodium 137 mmol/L (137-145); Triglycerides 127 mg/dL (35-150)
[2024-12-15 12:52] LABS: TSH w/ Reflex to FT4 2.02 uIU/mL (0.47-4.68)
== END ==
PROVIDERS: PCP Internal Medicine; Referring Provider Internal Medicine; Visit Provider Internal Medicine
DX: I10 Essential (primary) hypertension (principal); R73.01 Impaired fasting glucose; E78.2 Mixed hyperlipidemia
CPT/HCPCS: 36415; 80048; 80061; 83036; 84443; 84450; 85027